=== PATIENT | female | born 1950 | race Caucasian/White ===

== ENCOUNTER 2016-09-24 06:00 | Inpatient (IN) | payer OTHER ==
[~2016-09-24] VITALS: Ht 162.6 cm; Wt 132.9 kg
[~2016-09-24 06:00] MED LIST: KEFLEX500 MG PO; MELOXICAM15 MG PO; METOPROLOL TART50 MG PO
[2016-09-24 06:39] LABS: EOSINOPHIL COUNT 0.2 K/uL (0-0.3); IMMATURE GRANULOCYTE COUNT 0.7 K/uL; LYMPHOCYTE COUNT 3.6 K/uL (1.0-2.8); MCH 31.4 PG (29.0-34.0); MCHC 34.6 G/DL (30.0-36.0); MCV 90.7 FL (83-99); MEAN PLAT.VOLUME 10.3 uM^3 (9.5-12.4); MONOCYTE (%) 2.7 % (3-12); MONOCYTE COUNT 0.2 K/uL (0-0.8); NEUTROPHIL (%) 45.1 % (45-76); NEUTROPHIL COUNT 3.3 K/uL (1.8-6.4); PLATELET COUNT 331 K/uL (156-360); RBC DIS.WIDTH-CV 11.7 % (11.8-14.6); RBC DIS.WIDTH-SD 37.7 % (39-53); RED BLOOD COUNT 4.52 M/uL (3.80-5.20); WHITE BLOOD COUNT 7.4 K/uL (4.1-10.2)
[2016-09-24 06:41] LABS: CHLORIDE 106 mEq/L (99-109); POTASSIUM 3.8 mEq/L (3.7-5.4); SODIUM 141 mEq/L (136-147)
[2016-09-24 06:43] LABS: GLUCOSE 179 mg/dL (70-99)
[2016-09-24 06:44] LABS: ANION GAP 15 MEQ/L (2-14); PROTHROMBIN TIME 10.3 (9.2-11.2); PTT 24.7 (25-32)
[2016-09-24 06:45] LABS: TOTAL BILIRUBIN 0.5 mg/dL (0.0-1.0)
[2016-09-24 06:46] LABS: ALKALINE PHOSPHATASE 75 IU/L (3-129)
[2016-09-24 06:47] LABS: GFR ESTIMATE (CALCULATED) 53 mL/min/
[2016-09-24 06:48] LABS: UREA NITROGEN (BUN) 17 mg/dL (9-23)
[2016-09-24 06:53] LABS: TROP-I INTERPRETATION NEGATIVE; TROPONIN-I 0.01 ng/mL (0.0-0.30)
[2016-09-24] MEDS ORDERED: OXYCODONE-APAP1 EAC6 PO (09:34)
[2016-09-24 21:30] VITALS: BP 140/64
[2016-09-25 00:14] VITALS: BP 170/83
[2016-09-25 00:52] VITALS: BP 142/71
[2016-09-25 04:41] VITALS: BP 131/65; BP 1331/65
[2016-09-25 07:42] LABS: HEMATOCRIT 34.3 % (36.0-46.0); MCH 31.4 PG (29.0-34.0); MCHC 33.5 G/DL (30.0-36.0); MCV 93.7 FL (83-99); RBC DIS.WIDTH-CV 12.1 % (11.8-14.6); RBC DIS.WIDTH-SD 41.2 % (39-53); RED BLOOD COUNT 3.66 M/uL (3.80-5.20); WHITE BLOOD COUNT 7.5 K/uL (4.1-10.2)
[2016-09-25 07:48] LABS: ANION GAP 9 MEQ/L (2-14); CHLORIDE 107 MEQ/L (99-109); GFR ESTIMATE (CALCULATED) > 59 mL/min/; GLUCOSE 100 mg/dL (70-99); POTASSIUM 3.7 MEQ/L (3.7-5.4); SAMPLE HEMOLYSIS CHECK 0; SAMPLE ICTERIC CHECK 0; SAMPLE LIPEMIA CHECK 0; SODIUM 142 MEQ/L (136-147); UREA NITROGEN (BUN) 14 mg/dL (9-23)
[2016-09-25 07:52] VITALS: BP 134/68
[2016-09-25 08:39] LABS: MEAN PLAT.VOLUME 10.3 uM^3 (9.5-12.4)
[2016-09-25 08:44] LABS: PLATELET COUNT 193 K/uL (156-360)
[2016-09-25 11:10] VITALS: BP 166/85
[2016-09-25] MEDS ORDERED: LO-DOSE ASPIRIN81 M2 PO (14:21)
[2016-09-25] MEDS ORDERED: SIMVASTATIN20 MG PO (14:21)
[2016-09-25 14:57] VITALS: BP 177/81
== END 2016-09-25 15:26 | disposition home or self-care (01) | DRG 948 ==
LOC: EME 06:00 → 5SOUTH 16:25 → EDOF 16:25 → 5SOUTH 16:25
PROVIDERS: Emergency Medicine; Family Medicine
DX: R41.82 Altered mental status, unspecified (principal); Z68.43 Body mass index [BMI] 50.0-59.9, adult; T39.395A Adverse effect of other nonsteroidal anti-inflammatory drugs [NSAID], initial encounter; R47.9 Unspecified speech disturbances; E03.9 Hypothyroidism, unspecified; E66.01 Morbid (severe) obesity due to excess calories
CPT/HCPCS: 70450; 70553; 71010; 71275; 80048; 80053; 83605; 84443; 84484; 85025; 85027; 85610; 85730; 87040; 93005; 93880; 99281; 99285; J0696; J2405; J7030; J7050

== ENCOUNTER 2016-11-26 14:52 | Emergency (ER) | payer OTHER ==
[~2016-11-26] VITALS: Ht 162.6 cm; Wt 127.0 kg
[~2016-11-26 14:52] MED LIST changes: +LO-DOSE ASPIRIN81 M2 PO; +OXYCODONE-APAP1 EAC6 PO; +SIMVASTATIN20 MG PO
[2016-11-26] MEDS ORDERED: NORCO 5/3251 TABLET PO (16:15)
[2016-11-26 16:54] VITALS: BP 158/78
== END 2016-11-26 16:55 | disposition home or self-care (01) ==
LOC: EME 14:52
DX: S40.012A Contusion of left shoulder, initial encounter (principal); S20.212A Contusion of left front wall of thorax, initial encounter; W18.30XA Fall on same level, unspecified, initial encounter; I10 Essential (primary) hypertension; G89.29 Other chronic pain
CPT/HCPCS: 71101; 73030; 99281; 99284

== ENCOUNTER 2018-02-10 19:26 | Emergency (ER) | payer OTHER ==
[~2018-02-10] VITALS: Ht 162.6 cm; Wt 117.7 kg
[~2018-02-10 19:26] MED LIST changes: +NORCO 5/3251 TABLET PO
[2018-02-10 19:28] VITALS: BP 182/86
[2018-02-10] MEDS ORDERED: NORCO 5/3251 TABLET PO (21:38)
[2018-02-10] MEDS ORDERED: BACTRIM,SEPT1 TABLET PO (21:38)
== END 2018-02-10 22:10 | disposition home or self-care (01) ==
LOC: EME 19:26
DX: L98.9 Disorder of the skin and subcutaneous tissue, unspecified (principal); B95.8 Unspecified staphylococcus as the cause of diseases classified elsewhere; Z87.2 Personal history of diseases of the skin and subcutaneous tissue
CPT/HCPCS: 99281; 99284

== ENCOUNTER 2018-02-13 10:17 | Inpatient (IN) | payer OTHER ==
[~2018-02-13] VITALS: Ht 162.6 cm; Wt 117.3 kg
[~2018-02-13 10:17] MED LIST changes: +BACTRIM,SEPT1 TABLET PO
[2018-02-13 11:53] LABS: HEMATOCRIT 37.5 % (36.0-46.0); HEMOGLOBIN 12.9 G/DL (11.9-15.5); MCH 31.2 PG (29.0-34.0); MCHC 34.4 G/DL (30.0-36.0); MCV 90.8 FL (83-99); PLATELET COUNT 222 K/uL (156-360); RBC DIS.WIDTH-CV 11.4 % (11.8-14.6); RBC DIS.WIDTH-SD 37.5 % (39-53); RED BLOOD COUNT 4.13 M/uL (3.80-5.20); WHITE BLOOD COUNT 12.2 K/uL (4.1-10.2)
[2018-02-13 12:05] LABS: CHLORIDE 106 mEq/L (99-109); POTASSIUM 4.6 mEq/L (3.7-5.4); SODIUM 140 mEq/L (136-147)
[2018-02-13 12:07] LABS: GLUCOSE 93 mg/dL (70-99)
[2018-02-13 12:11] LABS: CREATININE 1.1 mg/dL (0.6-1.3); GFR ESTIMATE (CALCULATED) 53 mL/min/
[2018-02-13 12:12] LABS: UREA NITROGEN (BUN) 17 mg/dL (9-23)
[2018-02-13] MEDS ORDERED: SIMVASTATIN20 MG PO (12:45)
[2018-02-13] MEDS ORDERED: GABAPENTIN300 MG PO (12:45)
[2018-02-13] MEDS ORDERED: LISINOPRIL10 MG PO (12:45)
[2018-02-13 17:09] VITALS: BP 170/73
[2018-02-13 19:20] VITALS: BP 115/76
[2018-02-13 23:43] VITALS: BP 129/61
[2018-02-14] VITALS (7 sets, daily range): BP systolic 130–184; BP diastolic 61–88
[2018-02-15 07:15] VITALS: BP 175/92
[2018-02-15 16:51] VITALS: BP 176/74
[2018-02-15 23:04] LABS: CREATININE 0.8 MG/DL (0.6-1.3); GFR ESTIMATE (CALCULATED) > 59 mL/min/
[2018-02-16 01:04] VITALS: BP 180/75
[2018-02-16 02:16] LABS: VANCOMYCIN, TROUGH 9.6 MCG/ML (10-20)
[2018-02-16 08:19] VITALS: BP 150/81
[2018-02-16 16:30] VITALS: BP 194/91
[2018-02-16 23:14] VITALS: BP 162/67
[2018-02-17 06:06] LABS: HEMATOCRIT 34.4 % (36.0-46.0); HEMOGLOBIN 11.5 G/DL (11.9-15.5); MCH 30.8 PG (29.0-34.0); MCHC 33.4 G/DL (30.0-36.0); MCV 92.2 FL (83-99); PLATELET COUNT 224 K/uL (156-360); RBC DIS.WIDTH-CV 11.3 % (11.8-14.6); RBC DIS.WIDTH-SD 38.3 % (39-53); RED BLOOD COUNT 3.73 M/uL (3.80-5.20); WHITE BLOOD COUNT 6.7 K/uL (4.1-10.2)
[2018-02-17 06:31] LABS: CHLORIDE 104 MEQ/L (99-109); CREATININE 0.7 MG/DL (0.6-1.3); GFR ESTIMATE (CALCULATED) > 59 mL/min/; GLUCOSE 97 mg/dL (70-99); POTASSIUM 4.5 MEQ/L (3.7-5.4); SODIUM 141 MEQ/L (136-147); UREA NITROGEN (BUN) 14 mg/dL (9-23)
[2018-02-17 07:57] VITALS: BP 139/68
== END 2018-02-17 13:25 | disposition home or self-care (01) | DRG 603 ==
LOC: EME 10:17 → 2EAST 13:30 → EDOF 13:30 → ENRESERV 13:42 → 2EAST 14:56
PROVIDERS: Family Medicine; Nurse Practitioner Family
PROC: 0H91XZX Drainage of Face Skin, External Approach, Diagnostic (ICD-10-PCS; principal; 2018-02-14)
DX: L03.211 Cellulitis of face (principal); L02.01 Cutaneous abscess of face; B95.62 Methicillin resistant Staphylococcus aureus infection as the cause of diseases classified elsewhere; K13.0 Diseases of lips; E66.01 Morbid (severe) obesity due to excess calories; Z68.41 Body mass index [BMI] 40.0-44.9, adult; I10 Essential (primary) hypertension; E78.5 Hyperlipidemia, unspecified; J45.909 Unspecified asthma, uncomplicated; G89.29 Other chronic pain; M54.9 Dorsalgia, unspecified; K21.9 Gastro-esophageal reflux disease without esophagitis; M19.90 Unspecified osteoarthritis, unspecified site; Z79.891 Long term (current) use of opiate analgesic
CPT/HCPCS: 80048; 80202; 82565; 85027; 87040; 87070; 87075; 87077; 87147; 87186; 87205; 87641; 99281; 99284; 99285; J0690; J3370; J7030